=== PATIENT | female | born 1970 | race Caucasian/White ===

== ENCOUNTER 2021-07-07 13:47 | Emergency (ER) | payer MEDICARE, OTHER ==
[2021-07-07] MEDS ORDERED: IBUPROFEN600 MG PO (16:10)
[2021-07-07] MEDS ORDERED: TESSALON PERLE100 MG PO (16:10)
[2021-07-07] MEDS ORDERED: MEDROL DOSEPAK 24 MG PO (16:10)
== END 2021-07-07 16:19 | disposition home or self-care (01) ==
LOC: ER1 13:47
DX: J06.9 Acute upper respiratory infection, unspecified (principal); J40 Bronchitis, not specified as acute or chronic; E11.9 Type 2 diabetes mellitus without complications; Z90.710 Acquired absence of both cervix and uterus; Z88.0 Allergy status to penicillin; Z88.8 Allergy status to other drugs, medicaments and biological substances; F17.200 Nicotine dependence, unspecified, uncomplicated; Z20.822 Contact with and (suspected) exposure to COVID-19
CPT/HCPCS: 71045; 99285; U0002